=== PATIENT | female | born 1995 | race Caucasian/White ===

== ENCOUNTER 2022-03-16 12:38 | Outpatient (CLI) | payer MEDICAID ==
[~2022-03-16] VITALS: Ht 160 cm; Wt 104.0 kg
[2022-03-16 13:10] VITALS: BP 132/75
[2022-03-16] MEDS ORDERED: PREN-37 PO (14:06)
[2022-03-16 14:24] LABS: BILIRUBIN,URINE NEGATIVE (NEGATIVE); CLARITY,URINE CLEAR; COLOR,URINE YELLOW; GLUCOSE, URINE (UA) NEGATIVE (NEGATIVE); KETONES,URINE TRACE (NEGATIVE); LEUKOCYTE ESTERASE ,URINE NEGATIVE (NEGATIVE); NITRITE,URINE NEGATIVE (NEGATIVE); PROTEIN,URINE TRACE (NEGATIVE)
[2022-03-16 14:38] LABS: AMORPHOUS SEDIMENT,UR FEW AMOR URATES /LPF; BACTERIA,URINE TRACE /HPF; WBC,URINE 0-2 /HPF
[2022-03-16 14:40] VITALS: BP 115/66
--- NOTE | 2022-03-16 14:58 | Diagnostic Imaging Report ---
CLINICAL INDICATION: Patient 38 weeks gestation measuring 41 weeks. Check POLLY. EXAM: Limited 3rd trimester OB ultrasound. COMPARISON: None. FINDINGS AND IMPRESSION: LMP: 06/22/2021. GA by LMP: 38 weeks, 1 day. GA by current ultrasound: 38 weeks, 1 day EDC by current ultrasound: 03/29/2022. FETUS: Vill[place], fetus presentation is cephalic. heart rate is 165 bpm. PLACENTA: Grade 3. Placenta location is anterior with no evidence of previa. POLLY: 33.6 cm Dictated by: Dictated on workstation # [id number]
[2022-03-16 15:15] VITALS: BP 115/66
--- NOTE | 2022-03-19 08:21 | Physician Query-Final Dx ---
Clinic Account Progress/Dx Physician Query: Please give diagnosis Please include # weeks gestation Date of Service Mar 16, 2022 at 12:38 BIANCA,AprMar 19, 2022 08:21
== END 2022-03-16 15:15 | disposition home or self-care (01) ==
LOC: LDRP 12:38 → WSo 12:38
PROVIDERS: ATTEND Family Medicine
DX: O62.9 Abnormality of forces of labor, unspecified (principal); Z3A.38 38 weeks gestation of pregnancy
CPT/HCPCS: 76815; 81000; G0463; 99213

== ENCOUNTER 2022-03-20 06:30 | Inpatient (IN) | payer MEDICAID ==
[~2022-03-20] VITALS: Ht 162.5 cm; Wt 103.0 kg
[2022-03-20] VITALS (45 sets, daily range): BP systolic 109–148; BP diastolic 57–92
[~2022-03-20 06:30] MED LIST: PREN-37 PO
--- OUTSIDE RECORDS SUMMARY | 2022-03-20 06:37 | XMS REPORT | Clinical Summary ---
Author Author [facility] Organization [facility] Address Unknown Phone Unavailable Care Team Providers Care Core Machine Tender Name Role Phone Jinny Roberto JOHN PCP Allergies No known active allergies Medications End Date Status Medication Sig Dispensed Refills Start Date Active multivitamin Take 1 tablet 0 with minerals () by mouth 27 mg iron- 800 mcg daily. tablet Active ibuprofen (ADVIL,MOTRIN) Take 1 tablet 30 tablet 0 600 MG tablet (600 mg 6 total) by mouth every 6 (six) hours. Active senna-docusate Take 1-2 30 tablet 6 (PERICOLACE) 8.6-50 mg tablets by 6 mouth 2 (two) times a day. Active multivitamin Take 1 tablet 30 tablet 6 with minerals () by mouth 6 27 mg iron- 800 mcg daily. 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 charles 12/16/2015 Overview: Unilateral -- Right side [x] normal cell free dna [x] gender appears male Immunizations Name Administration Dates Next Due Influenza QIV (IM) 01/13/2016 Tdap 01/13/2016 Family History Relation Name Status Comments Father Alive Mother Alive Social History Date Tobacco Use Types Packs/Day Years Used Smoking Tobacco: Never Comments Alcohol Use Standard Drinks/Week No 0 (1 standard drink = 0.6 o z pure alcohol) Sex Assigned at Date Recorded Not on file Last Filed Vital Signs Reading Time Taken Comments Vital Sign 111/72 01/14/2016 8:33 AM CDT Blood Pressure 88 01/14/2016 8:33 AM CDT Pulse 36.2 C (97.1 F) 01/14/2016 8:33 AM CDT Temperature 18 01/14/2016 8:33 AM CDT Respiratory Rate 97% 01/14/2016 8:33 AM CDT Oxygen Saturation - - Inhaled Oxygen Concentration 93.4 kg (206 lb) 01/12/2016 12:33 PM CDT Weight 162.6 cm (5' 4") 01/12/2016 12:33 PM CDT Height 35.36 01/12/2016 12:33 PM CDT Body Mass Index Plan of Treatment Health Maintenance Due Date Last Done Comments HPV Vaccine (1 - 2-dose 12/14/2006 series) Cervical Cancer Screening 12/14/2016 via Pap Smear Influenza Vaccine (#1) 2022 01/13/2016 Td/Tdap# 01/12/2026 01/13/2016 Pneumococcal Vaccine: Aged Out No longer eligib le based on patient's age to Pediatrics (0 to 5 Years) complete this topic and At-Risk Patients (6 to 64 Years) Results Not on filefrom Last 3 Months Insurance Type Payer Benefit Subscriber ID Effective Phone Address Plan / Dates Group MEDICAID MANAGED ASSISTED [facility] [id number] 2015- [facility] Present [address] [place] [address] Sofiya Whiting Personal/F Self [address] [place] [id number] Sofiya Whiting Personal/F Self 1995 [address] [place] [id number] Advance Directives For more information, please contact: [phone] Date Inactivated Comments Code Status Date Activated 01/12/2016 7:36 PM Full Code 01/12/2016 1:03 PM Care Teams Start Date End Date Core Machine Tender Relationship Specialty 11/18/15 Jinny Roberto ARNP PCP - General Nurse [phone] Practitioner [place] [id number]
[2022-03-20] MEDS ORDERED: MINERAL OIL 30 ML UDC TOP PRN (06:45)
[2022-03-20] MEDS ORDERED: LIDOCAINE 1% INJ 20 ML VIAL IJ PRN (06:45)
[2022-03-20 07:27] LABS: BASOPHILS % (AUTO) 0 % (0-10); EOSINOPHILS # (AUTO) 0.2 10^3/uL (0.0-0.3); EOSINOPHILS % (AUTO) 1 % (0-10); HEMATOCRIT 43 % (35-52); HEMOGLOBIN 14.7 g/dL (11.5-16.0); LYMPHOCYTES # (AUTO) 1.5 10^3/uL (1.0-4.0); LYMPHOCYTES % (AUTO) 12 % (12-44); MEAN CORPUSCULAR HEMOGLOBIN 32 pg (25-34); MEAN CORPUSCULAR HGB CONC 34 g/dL (32-36); MEAN CORPUSCULAR VOLUME 94 fL (80-99); MEAN PLATELET VOLUME 11.7 fL (9.0-12.2); MONOCYTES # (AUTO) 0.7 10^3/uL (0.0-1.0); MONOCYTES % (AUTO) 6 % (0-12); NEUTROPHILS # (AUTO) 10.6 10^3/uL (1.8-7.8); NEUTROPHILS % (AUTO) 81 % (42-75); PLATELET COUNT 138 10^3/uL (130-400); WHITE BLOOD COUNT 13.1 10^3/uL (4.3-11.0)
[2022-03-20] MEDS: D5 LR IV SOLUTION 1,000 ML IV SCH ×2 (07:44→16:16)
[2022-03-20] MEDS ORDERED: OXYTOCIN PRE-MIX DRIP 500 ML IV SCH ×2 (08:15→16:45)
[2022-03-20] MEDS ORDERED: FLU QUADRIvalent (6 months+) 60 mcg/0.5 ml 2022-23 (Fluzone) IM ONE (09:45)
[2022-03-20] MEDS ORDERED: CATHETER FLUSH 10 ML SYR IV SCH ×2 (14:00→22:00)
[2022-03-20 14:53] LABS: BILIRUBIN,URINE NEGATIVE (NEGATIVE); CLARITY,URINE SL CLOUDY; COLOR,URINE YELLOW; GLUCOSE, URINE (UA) NEGATIVE (NEGATIVE); KETONES,URINE NEGATIVE (NEGATIVE); LEUKOCYTE ESTERASE ,URINE 2+ (NEGATIVE); NITRITE,URINE NEGATIVE (NEGATIVE); PH,URINE 5.5 (5-9); PROTEIN,URINE NEGATIVE (NEGATIVE)
[2022-03-20 15:01] LABS: BACTERIA,URINE FEW /HPF
--- NOTE | 2022-03-20 16:13 | History & Physical-OB ---
OB - Chief Complaint & HPI Date/Time Date of Admission: Date of Admission: Mar 20, 2022 at 06:30 Date seen by a Provider: Mar 20, 2022 Time Seen by a Provider: 15:25 Chief Complaint/History OB-Reason for Admission/Chief: Induction of Labor Hx : 4 Hx Para: 3 Expected Date of Delivery: Mar 29, 2022 Gestational Age in Weeks: 38 Gestational Age in Days: 5 History of Labs B+, Ab neg, Rub Imm HIV/RPR/HepB/C NR GC/Chyl neg Normal 1 hr GTT GBS neg Allergies and Home Medications Allergies Coded Allergies: No Known Drug Allergies (Unverified , 03/16/22) Patient Home Medication List Home Medication List Reviewed: Yes Vit/Iron Fumarate/FA ( Tablet) 27 Mg Iron-800 Mcg Tablet, 1 EACH PO DAILY PRN, (Reported) Entered as Reported by: TINA GONZALEZ on 03/16/22 [id number] Last Action: Reviewed OB - History Hx of Present Care: Yes Ultrasounds: Abnormal US findings (Saturday POLLY 33 with elevated fundal heights the last 2 weeks) Obstetrical Complications: None Medical Complications: None Obstetrical History Hx : 4 Hx # Term Pregnancies: 3 Number of Living Children: 3 Patient Past Medical History None Social History/Family History Alcohol Use: Denies Use Recreational Drug Use: No Smoking Cessation: Never smoker Immunizations Influenza Vaccine Up-to-Date: No; Not Current Hepatitis A: Yes Hepatitis B: Yes Tetanus Booster (TDap): Less than 5yrs (01/15/22) Rubella: immune RPR/VDRL: Negative GBS Status: Negative HBsAG: Negative OB - Admission Exam Physical Exam Vitals: Vital Signs 03/20/22 03/20/22 09:15 13:45 Temp 36.5 Pulse 100 Resp 18 B/P (MAP) 116/78 (91) Pulse Ox 94 O2 Delivery Room Air HEENT: NCAT Heart: Rhythm Normal Lungs: Clear Abdomen: Gravid Cervical Dilatation: 9cm Effacement: 100% Station: 0 Membranes: Ruptured Amniotic Fluid: Clear Heart Rate: 140's Accelerations: Accelerations Present Decelerations: Variable Decelerations Short Term Variability: Present Workers Compensation Administrator Variability: Average (6-25) Contractions on Admission: < 5 Minutes Apart Intensity: Firm Bess Scoring Tool (Modified) Dilation (cm): 3-4cm (2) Effacement (%): 51-79% (2) Descent/Station: -1,0 (2) Cervix Consistency: Medium(1) Cervix Position: Middle/Mid-Position (1) Add 1 point for: Each previous vaginal delivery (1) Labs Laboratory Tests Test 03/20/22 06:35 03/20/22 07:00 Range/Units Urine Color YELLOW Urine Clarity SL CLOUDY Urine pH 5.5 5-9 Urine Specific [place] 1.025 H 1.016-1.022 Urine Protein NEGATIVE NEGATIVE Urine Glucose (UA) NEGATIVE NEGATIVE Urine Ketones NEGATIVE NEGATIVE Urine Nitrite NEGATIVE NEGATIVE Urine Bilirubin NEGATIVE NEGATIVE Urine Urobilinogen 0.2 < = 1.0 MG/DL Urine Leukocyte Esterase 2+ H NEGATIVE Urine RBC (Auto) NEGATIVE NEGATIVE Urine RBC NONE /HPF Urine WBC 2-5 /HPF Urine Squamous Epithelial Cells 5-10 /HPF Urine Crystals NONE /LPF Urine Bacteria FEW H /HPF Urine Casts NONE /LPF Urine Mucus NEGATIVE /LPF Urine Culture Indicated NO White Blood Count 13.1 H 4.3-11.0 10^3/uL Red Blood Count 4.62 3.80-5.11 10^6/uL Hemoglobin 14.7 11.5-16.0 g/dL Hematocrit 43 35-52 % Mean Corpuscular Volume 94 80-99 fL Mean Corpuscular Hemoglobin 32 25-34 pg Mean Corpuscular Hemoglobin Concent 34 32-36 g/dL Red Cell Distribution Width 14.5 10.0-14.5 % Platelet Count 138 130-400 10^3/uL Mean Platelet Volume 11.7 9.0-12.2 fL Immature Granulocyte % (Auto) 0 % Neutrophils (%) (Auto) 81 H 42-75 % Lymphocytes (%) (Auto) 12 12-44 % Monocytes (%) (Auto) 6 0-12 % Eosinophils (%) (Auto) 1 0-10 % Basophils (%) (Auto) 0 0-10 % Neutrophils # (Auto) 10.6 H 1.8-7.8 10^3/uL Lymphocytes # (Auto) 1.5 1.0-4.0 10^3/uL Monocytes # (Auto) 0.7 0.0-1.0 10^3/uL Eosinophils # (Auto) 0.2 0.0-0.3 10^3/uL Basophils # (Auto) 0.0 0.0-0.1 10^3/uL Immature Granulocyte # (Auto) 0.1 0.0-0.1 10^3/uL OB - Assessment/Plan/Diagnosis Assessment Assessment: induction of labor Admission Dx Third Trimester 38 week gestation Polyhydramnios Admission Status: Inpatient Order (span 2 midnights) Reason for Inpatient Admission: Labor and delivery Plan Other Plan 26 yo @ 38.5 wga here for IOL for polyhydramnios, POLLY 33 Plan - IOL with Pitocin protocol - GBS neg - High risk for PPH due to Polyhydramnios Copy Copies To 1: DAVID CORDOVA MD, HOLLY R MD Mar 20, 2022 16:13
[2022-03-20] MEDS ORDERED: BENZOCAINE/MENTHOL (DERMOPLAST) 56 ML CAN TP PRN (16:45)
[2022-03-20] MEDS ORDERED: WITCH HAZEL(TUCKS) 40 EA JAR TOP PRN (16:45)
[2022-03-20] MEDS ORDERED: IBUPROFEN 600 MG (MOTRIN) TAB PO ONE (16:47)
--- NOTE | 2022-03-20 16:53 | OB Labor & Delivery Record ---
Vag Delivery Note Vag Delivery Note Date of Delivery: 03/20/22 Preoperative Diagnosis: Sofiya Whiting is a (26 /Para 4 / 3, Gestational Age (wks)38.5 wga here for IOL for Polyhydramnios Postoperative Diagnosis: Same Surgeon: DAVID CORDOVA MD On Air Talent: Jigar Carvajal, MS3 Anesthesia: Natural Delivery Type: @ 1632 Findings: Viable Male , apgars 9/9, weight 8#4, 3755 grams Lacerations: None Intact placenta with 3 vessel cord. No nuchal cord, body cord or shoulder dystocia Estimated Blood Loss: 125 ml Complications: None Condition: Stable Description of Procedure: The patient is a 26 year old female who presented for IOL for polyhydramnios. She was admitted and informed consent was obtained. Her labor course was remarkable for pitocin induction. She progressed to complete dilatation and began to push. She was then set up for delivery, patient pushing in squatting position and hands and knees. The infant's head was delivered atraumatically in the WAQAR position. The shoulders and remainder of the infant's body were then delivered without difficulty. Vigorous upon delivery. Upon delivery, the head was held below the level of the perineum and the mouth and nares were bulb suctioned. The cord was doubly clamped and cut after 3 min delay and the infant was attended to by the pediatric staff on maternal abdomen. An intact placenta with 3-vessel cord delivered via Nicky @ 1637 and there was found to be minimal bleeding.~ Vigorous fundal massage was performed and the fundus was found to be firm. IV oxytocin was given. Examination of the vagina and perineum revealed no lacerations that require repair. Following the repair, sponge, instrument and needle counts were correct. Mom and baby were both in stable condition in the labor suite. Vitals - Labs Vital Signs - I&O Vital Signs Date Time Temp Pulse Resp B/P (MAP) Pulse Ox O2 Delivery O2 Flow Rate FiO2 03/20/22 13:45 100 18 116/78 (91) 94 Room Air 03/20/22 13:30 104 18 98 Room Air 03/20/22 13:15 102 18 129/92 (104) 96 Room Air 03/20/22 13:00 101 18 118/78 (91) 97 Room Air 03/20/22 12:45 101 18 118/78 (91) 97 Room Air 03/20/22 12:30 94 18 119/64 (82) 96 Room Air 03/20/22 12:15 96 18 121/65 (83) 100 Room Air 03/20/22 12:00 102 18 119/71 (87) 95 Room Air 03/20/22 11:45 96 18 126/67 (86) 99 Room Air 03/20/22 11:30 108 18 124/68 (86) 97 Room Air 03/20/22 11:15 98 20 130/72 (91) 98 Room Air 03/20/22 11:00 96 20 122/77 (92) 100 Room Air 03/20/22 10:45 95 20 119/73 (88) 96 Room Air 03/20/22 10:30 102 20 140/91 (107) 94 Room Air 03/20/22 10:15 96 20 125/70 (88) 97 Room Air 03/20/22 10:00 96 20 138/74 (95) 97 Room Air 03/20/22 09:45 100 20 144/75 (98) 98 Room Air 03/20/22 09:30 93 20 129/60 (83) 95 Room Air 03/20/22 09:15 36.5 90 20 130/62 (84) 97 Room Air 03/20/22 09:00 94 20 118/62 (80) 96 Room Air 03/20/22 08:55 36.8 107 20 98 Room Air 03/20/22 08:45 96 20 117/57 (77) 97 Room Air 03/20/22 08:30 96 20 117/57 (77) 97 Room Air 03/20/22 08:15 95 20 119/71 (87) 99 Room Air 03/20/22 08:00 102 20 124/72 (89) 97 Room Air 03/20/22 07:45 36.8 107 20 119/68 (85) 98 Room Air Labs Laboratory Tests 03/20/22 06:35: Urine Color YELLOW, Urine Clarity SL CLOUDY, Urine pH 5.5, Urine Specific [place] 1.025H, Urine Protein NEGATIVE, Urine Glucose (UA) NEGATIVE, Urine Ketones NEGATIVE, Urine Nitrite NEGATIVE, Urine Bilirubin NEGATIVE, Urine Urobilinogen 0.2, Urine Leukocyte Esterase 2+H, Urine RBC (Auto) NEGATIVE, Urine RBC NONE, Urine WBC 2-5, Urine Squamous Epithelial Cells 5-10, Urine Crystals NONE, Urine Bacteria FEWH, Urine Casts NONE, Urine Mucus NEGATIVE, Urine Culture Indicated NO 03/20/22 07:00: White Blood Count 13.1H, Red Blood Count 4.62, Hemoglobin 14.7, Hematocrit 43, Mean Corpuscular Volume 94, Mean Corpuscular Hemoglobin 32, Mean Corpuscular Hemoglobin Concent 34, Red Cell Distribution Width 14.5, Platelet Count 138, Mean Platelet Volume 11.7, Immature Granulocyte % (Auto) 0, Neutrophils (%) (Auto) 81H, Lymphocytes (%) (Auto) 12, Monocytes (%) (Auto) 6, Eosinophils (%) (Auto) 1, Basophils (%) (Auto) 0, Neutrophils # (Auto) 10.6H, Lymphocytes # (Auto) 1.5, Monocytes # (Auto) 0.7, Eosinophils # (Auto) 0.2, Basophils # (Auto) 0.0, Immature Granulocyte # (Auto) 0.1 DAVID CORDOVA MD Mar 20, 2022 16:53
[2022-03-20] MEDS: IBUPROFEN 600 MG (MOTRIN) TAB PO SCH ×2 (17:03→23:25)
[2022-03-20] MEDS: ACETAMINOPHEN 500 MG TAB (TYLENOL) PO SCH (21:18)
[2022-03-20] MEDS: DOCUSATE SODIUM 100 MG (COLACE) CAP PO SCH (21:18)
[2022-03-21 05:09] VITALS: BP 106/58
[2022-03-21] MEDS: ACETAMINOPHEN 500 MG TAB (TYLENOL) PO SCH ×2 (05:19→14:45)
[2022-03-21] MEDS: IBUPROFEN 600 MG (MOTRIN) TAB PO SCH ×2 (05:20→14:45)
[2022-03-21 06:57] LABS: BASOPHILS # (AUTO) 0.1 10^3/uL (0.0-0.1); BASOPHILS % (AUTO) 0 % (0-10); EOSINOPHILS # (AUTO) 0.1 10^3/uL (0.0-0.3); EOSINOPHILS % (AUTO) 1 % (0-10); HEMATOCRIT 37 % (35-52); HEMOGLOBIN 12.5 g/dL (11.5-16.0); LYMPHOCYTES # (AUTO) 1.7 10^3/uL (1.0-4.0); LYMPHOCYTES % (AUTO) 10 % (12-44); MEAN CORPUSCULAR HEMOGLOBIN 32 pg (25-34); MEAN CORPUSCULAR HGB CONC 34 g/dL (32-36); MEAN CORPUSCULAR VOLUME 94 fL (80-99); MEAN PLATELET VOLUME 12.1 fL (9.0-12.2); MONOCYTES # (AUTO) 1.5 10^3/uL (0.0-1.0); MONOCYTES % (AUTO) 9 % (0-12); NEUTROPHILS # (AUTO) 13.5 10^3/uL (1.8-7.8); NEUTROPHILS % (AUTO) 79 % (42-75); PLATELET COUNT 114 10^3/uL (130-400); WHITE BLOOD COUNT 17.1 10^3/uL (4.3-11.0)
[2022-03-21] MEDS: DOCUSATE SODIUM 100 MG (COLACE) CAP PO SCH (07:59)
[2022-03-21 08:15] VITALS: BP 114/75
--- NOTE | 2022-03-21 13:10 | Discharge Summary ---
Diagnosis/Chief Complaint Date of Admission Mar 20, 2022 at 06:30 Date of Discharge Discharge Summary-OBS Procedures None. Discharge Physical Examination Allergies: Coded Allergies: No Known Drug Allergies (Unverified , 03/16/22) Vitals & I&Os Intake and Output 03/21/22 00:00 Intake Total 6625 ml Balance 6625 ml Vital Sign - Last 12Hours Date Time Temp Pulse Resp B/P (MAP) Pulse Ox O2 Delivery O2 Flow Rate FiO2 03/21/22 05:09 36.8 96 18 106/58 (74) 97 Room Air Hospital Course Labs Laboratory Tests 03/21/22 06:31: White Blood Count 17.1H, Red Blood Count 3.90, Hemoglobin 12.5, Hematocrit 37, Mean Corpuscular Volume 94, Mean Corpuscular Hemoglobin 32, Mean Corpuscular Hemoglobin Concent 34, Red Cell Distribution Width 14.4, Platelet Count 114L, Mean Platelet Volume 12.1, Immature Granulocyte % (Auto) 1, Neutrophils (%) (Auto) 79H, Lymphocytes (%) (Auto) 10L, Monocytes (%) (Auto) 9, Eosinophils (%) (Auto) 1, Basophils (%) (Auto) 0, Neutrophils # (Auto) 13.5H, Lymphocytes # (Auto) 1.7, Monocytes # (Auto) 1.5H, Eosinophils # (Auto) 0.1, Basophils # (Auto) 0.1, Immature Granulocyte # (Auto) 0.1 Discharge Instructions to patient/family Please see electronic discharge instructions given to patient. Discharge Medications Reviewed and agree with Discharge Medication list on patient's Discharge Instruction sheet MELIZA PIERCE MD Mar 21, 2022 13:10
--- NOTE | 2022-03-21 13:13 | Discharge Inst-Women's Service ---
Discharge Inst-Women's Serv Depart Medication/Instructions New, Converted or Re-Newed RX: Other Instructions May take over the counter ibuprofen 200mg 2 or 3 tabs every 6hours if needed for cramps Problems Reviewed?: Yes Consults/Follow Up Additional Follow Up: Yes (Dr Huff in 6 weeks.) Activity Driving Instructions: No Driving for 1 Week Nothing Inside Vagina: No [place] (for 6 weeks.) Diet Discharge Diet: Regular Diet Return to The Hospital For: as below Symptoms to Report to : Bleeding Excessive, Pain Increased, Fever Over 101 Degrees F, Vaginal Discharge Foul For Any Problems or Questions: Contact Your Physician MELIZA PIERCE MD Mar 21, 2022 13:13
[2022-03-21 15:02] VITALS: BP 124/71
[2022-03-21 17:48] VITALS: BP 127/76
== END 2022-03-21 18:50 | disposition home or self-care (01) | DRG 807 ==
LOC: LDRP 06:30
PROVIDERS: ADMIT Family Medicine; ATTEND Family Medicine
PROC: 10E0XZZ Delivery of Products of Conception, External Approach (ICD-10-PCS; principal; 2022-03-20)
PROC: 3E033VJ Introduction of Other Hormone into Peripheral Vein, Percutaneous Approach (ICD-10-PCS; 2022-03-20)
DX: O40.3XX0 Polyhydramnios, third trimester, not applicable or unspecified (principal); Z37.0 Single live birth; Z3A.38 38 weeks gestation of pregnancy; Z28.310 Unvaccinated for COVID-19
CPT/HCPCS: 36415; 81000; 85025; 86780; 86850; 86900; 86901